=== PATIENT | male | born 1960 | race Caucasian/White ===

== ENCOUNTER 2020-05-24 05:18 | Outpatient (CLI) | payer OTHER ==
[2020-05-24 11:48] LABS: Anion Gap 16 mmol/L (10-20); BUN (Urea Nitrogen) 16 mg/dL (8.4-25.7); Calc. Creatinine Clearance 0 mL/min (70-130); Calcium 10.2 mg/dL (7.8-10.44); Carbon Dioxide 25 mmol/L (22-29); Chloride 107 mmol/L (98-107); Estimated GFR-MDRD 76; Glucose 100 mg/dL (70-105); Potassium 5.6 mmol/L (3.5-5.1); Sodium 142 mmol/L (136-145)
[2020-05-24 12:12] LABS: Hemoglobin 15.3 g/dL (14.0-18.0); Mean Corpuscular HGB CONC 33.3 g/dL (32.0-36.0); Mean Corpuscular Hemoglobin 30.1 pg (27.0-31.0); Mean Corpuscular Volume 90.3 fL (78.0-98.0); Mean Platelet Volume 9.4 fL (7.4-10.4); Platelet Count 271 thou/uL (130-400); RBC Distribution Width 13.3 % (11.5-14.5); Red Blood Cell (RBC) Count 5.09 mill/uL (4.70-6.10); White Blood Cell (WBC) Count 8.2 thou/uL (4.8-10.8)
[2020-05-24 17:19] LABS: SARS-CoV-2 MS2 Positive; SARS-CoV-2 N Gene Negative; SARS-CoV-2 S Gene Negative; SARS-CoV-2 by NAA Not Detected (NotDetected); SARS-CoV-2 orf1ab Negative
== END 2020-05-24 05:19 | disposition home or self-care (01) ==
LOC: LABBT 05:18
PROVIDERS: ATTEND Neurological Surgery
DX: Z01.812 Encounter for preprocedural laboratory examination (principal); Z11.59 Encounter for screening for other viral diseases; M54.16 Radiculopathy, lumbar region
CPT/HCPCS: 80048; 85027; 87635; U0003

== ENCOUNTER 2020-05-29 06:03 | Day surgery (SDC) | payer OTHER ==
[2020-05-22 15:24] VITALS: BMI 28.7
[2020-05-29] MEDS ORDERED: Famotidine/PF 20 mg/2ml Vial ONE (06:53)
[2020-05-29] MEDS ORDERED: Fentanyl 250 MCG/5 ML VIAL ONE (07:07)
[2020-05-29 07:08] LABS: Potassium 3.5 mmol/L (3.5-5.1)
--- NOTE | 2020-05-29 08:01 | PRG ---
DATE OF SERVICE: 05/29/2020 preoperatively. We again discussed the plan L5-S1 diskectomy and fusion. He is very concerned about the L4-L5 disk and after reinspection of his MRI scan, I do agree this is potentially contributing to some degree of symptoms. He is keen on exploring this disk if it visually appears to be necessary. I told him we would take this into account during the procedure. Job ID: [id number]
[2020-05-29] MEDS ORDERED: SUGAMMADEX SODIUM 200 MG/2 ML VIAL ONE (08:33)
[2020-05-29] MEDS ORDERED: Meperidine HCl/PF 25 MG/ML VIAL ONE (09:12)
[2020-05-29] MEDS ORDERED: Fentanyl 100 MCG/2 ML VIAL ONE ×3 (09:12→10:06)
[2020-05-29] MEDS ORDERED: Tamsulosin HCl 0.4 MG CAP ONE (09:50)
--- NOTE | 2020-05-29 10:29 | OP ---
DATE OF PROCEDURE: 05/29/2020 NAMED ACCOUNT EXECUTIVE: Rajiv. PROCEDURES PERFORMED: Left L5-S1 and L4-L5 laminectomy, facetectomy, foraminotomy, and diskectomy; interbody arthrodesis, L4-L5 and L5-S1; intervertebral biomechanical device, L4-L5; demineralized bone matrix; local morselized autograft; and pedicle screw instrumentation L4-L5 and L5-S1. DESCRIPTION OF PROCEDURE: The patient was brought to the operating room and intubated. He was rolled in a prone position on gel-filled chest rolls. We exposed L5 and S1 and included the L4-L5 inferior facet. Exploring the L4-L5 facet, we found a surprising amount of ligamentous laxity and bilateral exterior synovial cyst protrusion suggesting significant facet pathology. Based on the patient's preoperatively expressed wishes, we elected to include L4-L5 in the procedure. We next performed left L4-L5 laminectomy, facetectomy, foraminotomy and similarly at L5-S1. At the L5-S1 level, we found the disk space to be entirely collapsed. This was removed and the bony endplates decorticated for the purpose of arthrodesis, but I did not attempt to place an intervertebral device at L5-S1 given the small size of the disk space. At L4-L5, we did perform a complete diskectomy and after complete decompression had been secured, bony endplates were decorticated for the purpose of arthrodesis and appropriate-sized intervertebral biomechanical PEEK device were all in the field filled with demineralized bone matrix local morselized autograft, and tapped in place securely at L4-L5. Next, pedicle screws were placed at left L4, left L5, and left S1 using lateral fluoroscopic guidance. The rick was secured between the screws, connected by nuts, which were final tightened. The wound was then extensively irrigated and MAC hemostasis was secured. A combination of demineralized bone matrix local morselized autograft was laid over the lamina and posterolateral surface was used for the purpose of arthrodesis. Vancomycin powder was applied and the wound was then closed in anatomic layers. Job ID: [id number]
[2020-05-29] MEDS ORDERED: PROPOFOL 200 MG/20 ML VIAL ONE (10:33)
[2020-05-29] MEDS ORDERED: Metoclopramide HCl 10 MG/2 ML VIAL ONE (10:33)
[2020-05-29] MEDS ORDERED: Lidocaine 1% PF 5 ML VIAL ONE (10:33)
[2020-05-29] MEDS ORDERED: Rocuronium Bromide 10 MG/ML (10ML VIAL) ONE (10:33)
[2020-05-29] MEDS ORDERED: Ondansetron PF 4 MG/2 ML Vial ONE (10:33)
[2020-05-29] MEDS ORDERED: Dexamethasone 20 MG/5 ML VIAL ONE (10:33)
[2020-05-29] MEDS ORDERED: Albuterol Sulfate HFA (OR ONLY) ONE (10:33)
[2020-05-29] MEDS ORDERED: Acetaminophen/Codeine 30-300mg Tablet ONE (10:57)
--- NOTE | 2020-05-29 11:57 | EKG ---
Test Reason : PREOP REPEAT Blood Pressure : / mmHG Vent. Rate : 058 BPM Atrial Rate : 058 BPM P-R Int : 180 ms QRS Dur : 100 ms QT Int : 428 ms P-R-T Axes : 042 -03 038 degrees QTc Int : 420 ms Sinus bradycardia Non-specific intra-ventricular conduction delay Abnormal ECG Confirmed by RUBEN GARCIA ([id number]) on 05/29/2020 11:57:22 AM Referred By: KATHE Confirmed By:RUBEN GARCIA
== END 2020-05-29 11:40 | disposition home or self-care (01) ==
LOC: SDC 06:03
PROVIDERS: ATTEND Neurological Surgery
PROC: 0ST20ZZ Resection of Lumbar Vertebral Disc, Open Approach (ICD-10-PCS; principal; 2020-05-29)
PROC: 0SG00AJ Fusion of Lumbar Vertebral Joint with Interbody Fusion Device, Posterior Approach, Anterior Column, Open Approach (ICD-10-PCS; principal; 2020-05-29)
DX: M54.16 Radiculopathy, lumbar region (principal); M71.38 Other bursal cyst, other site; E78.5 Hyperlipidemia, unspecified; K21.9 Gastro-esophageal reflux disease without esophagitis; G47.31 Primary central sleep apnea; M19.90 Unspecified osteoarthritis, unspecified site; Z79.899 Other long term (current) drug therapy
CPT/HCPCS: 36415; 76000; 84132; 93005; 93010; C1713; C1768; J0690; J1100; J2175; J2405; J2704; J2765; J3010; J3370; J3490; S0028

== ENCOUNTER 2020-07-11 09:24 | Outpatient (CLI) | payer OTHER ==
--- NOTE | 2020-07-11 10:39 | CT ---
CT lumbar spine without contrast: HISTORY: Lumbar radiculopathy. Patient with history of back surgery and now having low back pain with pain ext ending into left leg. COMPARISON: No prior CT exams of the lumbar spine available FINDINGS: Vascular calcifications are seen in the abdominal aorta and iliac arteries. Remainder of the limited visualized retroperitoneal structures demonstrate a grossly normal nonenhanced CT appearance. No fracture or subluxation is seen involving the lumbar spine. Postoperative changes lower lumbar spi ne are noted with unilateral left-sided pedicular screws with interlocking rods transfixing the L4-5 and L5-S1 levels. Intradiscal prosthesis is seen at the L4-5 level. No hardware complication is seen. L1-2: No significant central canal or neural foraminal narrowing is seen. L2-3: Mild far lateral right disc bulge which encroaches on the inferior aspect of the right neural f oramen without significant neural foraminal narrowing. Central spinal canal and neural foramina are patent at this level. L3-4: Mild disc osteophyte complex and mild facet degenerative changes. No significant neural foramin al narrowing is seen. Central spinal canal is patent. L4-5: There is artifact at this level due to left-sided pedicular screws. A left laminotomy defect an d facetectomy is present at this level. There is soft tissue density along the left lateral aspect of the thecal sac which extends into the inferior aspect of the left neural foramen and results in mi [id number] left neural foraminal narrowing. This could potentially represent scar tissue, but residual disc material cannot be excluded. The right neural foramen is patent. There is mild central canal narrowing noted. L5-S1: Severe loss of intervertebral disc height with endplate degenerative changes and vacuum phenom enon in the intervertebral disc. There is a mild disc osteophyte complex present at this level. Moderate right neural foraminal narrowing is present primarily related to bony encroachment due to po sterior osteophyte formation eccentrically greater on the right. The left neural foramen and central canal are patent. IMPRESSION: 1. Postoperative changes L4-5 and L5-S1 levels related to unilateral left-sided posterior fusion at t hese levels. 2. Left laminotomy defect at the L4-5 level with soft tissue density extending along the laminotomy d efect and along the left lateral aspect of the thecal sac resulting in moderate narrowing of the left neural foramen. Findings may be related to scar tissue in this region, but residual disc materia l is also a possibility. 3. Degenerative changes lumbosacral junction with moderate right-sided neural foraminal narrowing ernestine lane related to bony encroachment.
== END 2020-07-11 09:25 | disposition home or self-care (01) ==
LOC: TBSIIMAG 09:24
PROVIDERS: ATTEND Neurological Surgery
DX: M47.26 Other spondylosis with radiculopathy, lumbar region (principal); M48.061 Spinal stenosis, lumbar region without neurogenic claudication; Z98.890 Other specified postprocedural states; Z98.1 Arthrodesis status
CPT/HCPCS: 72131

== ENCOUNTER 2020-07-25 12:29 | Outpatient (CLI) | payer OTHER ==
--- NOTE | 2020-07-25 16:43 | RAD ---
LUMBAR SPINE 2 VIEWS: HISTORY: Lumbar radiculopathy. COMPARISON: 06/18/2020. FINDINGS: Pedicle screws on the left are again noted at L4, L5, and S1 with interbody implant at L4-5. There i s loss of disk space at L5-S1. Vertebral body height and alignment is maintained and appears stable from the prior exam. Lateral bridging osteophyte on the right at L2-3 again noted. No interval peng ge from 06/18/2020. IMPRESSION: Stable lumbar spine findings. POS: CHRISTIAN
== END 2020-07-25 12:30 | disposition home or self-care (01) ==
LOC: TBSIIMAG 12:29
PROVIDERS: ATTEND Neurological Surgery
DX: M54.16 Radiculopathy, lumbar region (principal)
CPT/HCPCS: 72100

== ENCOUNTER 2020-08-15 11:30 | Outpatient (CLI) | payer OTHER ==
--- NOTE | 2020-08-15 12:27 | RAD ---
2 VIEWS LUMBAR SPINE: Date: 08/15/2020 COMPARISON: 07/25/2020. HISTORY: Status post fusion. Right leg issues. FINDINGS: Unilateral left-sided transpedicular screw at L4, L5, and S1. No perihardware lucency. Stable moderat e to severe loss of disc space height at L5-S1. Stable disc prosthesis at L4-L5. No change in alignme nt. Vertebral body heights are maintained. No fracture. IMPRESSION: Stable postsurgical change, compatible with left-sided fusion from L4 through S1. POS: AH
== END 2020-08-15 11:31 | disposition home or self-care (01) ==
LOC: TBSIIMAG 11:30
PROVIDERS: ATTEND Neurological Surgery
DX: M54.16 Radiculopathy, lumbar region (principal); Z98.890 Other specified postprocedural states
CPT/HCPCS: 72100

== ENCOUNTER 2020-09-17 14:31 | Outpatient (CLI) | payer OTHER ==
--- NOTE | 2020-09-17 15:23 | RAD ---
EXAM: XR Lumbar Spine 2 Or 3 View PROVIDED CLINICAL HISTORY: Spondylolisthesis COMPARISON: 08/15/2020 FINDINGS: 5 lumbar vertebral bodies are redemonstrated. Lumbar alignment is unchanged. Postoperative changes ap pear stable. Disc space heights appear preserved. Vertebral body heights appear preserved. Pedicles appear intact. IMPRESSION: Stable exam.
== END 2020-09-17 14:32 | disposition home or self-care (01) ==
LOC: TBSIIMAG 14:31
PROVIDERS: ATTEND Neurological Surgery
DX: M43.16 Spondylolisthesis, lumbar region (principal)
CPT/HCPCS: 72100

== ENCOUNTER 2020-10-09 11:15 | Outpatient (CLI) | payer OTHER ==
--- NOTE | 2020-10-09 12:49 | RAD ---
LUMBAR SPINE 4 VIEWS: HISTORY: Back pain. Spondylolisthesis. COMPARISON: 09/17/2020. FINDINGS: The pedicle screws and rods on the left transfixing L4, L5, and S1 again noted. An interbody implant at L4-5 is unchanged in position. There is now a fracture of the S1 pedicle screw when compared to the recent exam of 09/17/2020. The hardware is otherwise unchanged. No evidence of loosening. Loss of disk space at L5-S1 is stable. The spurring from the lumbar vertebrae is unchanged. Vertebr al body height and alignment is preserved and there is no evidence of significant listhesis with flex ion or extension. IMPRESSION: 1. Fracture of the S1 pedicle screw on the left when compared to recent exam of 09/17/2020. 2. Otherwise, the lumbar findings are stable. POS: CHRISTIAN
== END 2020-10-09 11:16 | disposition home or self-care (01) ==
LOC: TBSIIMAG 11:15
PROVIDERS: ATTEND Neurological Surgery
DX: M43.16 Spondylolisthesis, lumbar region (principal); T84.226A Displacement of internal fixation device of vertebrae, initial encounter
CPT/HCPCS: 72120

== ENCOUNTER 2020-10-16 07:14 | Outpatient (CLI) | payer OTHER ==
[2020-10-15 11:35] VITALS: BMI 28.7
[2020-10-16] MEDS ORDERED: Sodium Chloride 0.9% 10 ML ONE (07:58)
--- NOTE | 2020-10-16 09:07 | RAD ---
MYELOGRAM LUMBAR: DATE: 10/16/2020 HISTORY: 60-year-old male with low back pain and right lumbar radiculopathy. Spinal fusion failure T 84.9XXA, fracture of S1 screw T 84.498A TECHNIQUE: Signed informed consent obtained. Patient placed prone on fluoroscopy table. Skin of lower back prepa red and draped in usual sterile fashion. 25-gauge needle used to apply buffered lidocaine superficially and deeply. Level selected:L2-3. Approach:right paramedian interlaminar. 22-gauge spinal needle advanced into spinal canal under brief, intermittent fluoroscopy. Upon return of clear CSF, 10 mL Isovue [id number] media was injected into the intrathecal space. Spinal needle was removed. Patient tolerated procedure well. No complications. Total fluoroscopy time:0.7 minutes. Dose area product:53.7 uGy*m^2. FINDINGS: Unilateral left pedicle screws at L4, L5, and S1. Fracture of S1 screws are demonstrated on recent lumbar spine radiograph of 10/09/2020. Good contrast opacification of thecal sac. IMPRESSION: Successful lumbar myelogram. See separate report of subsequent CT lumbar myelogram.
[2020-10-16 09:17] VITALS: BP 125/80; TEMP 98.1
--- NOTE | 2020-10-16 10:12 | CT ---
CT lumbar spine with contrast: (CT lumbar myelogram) 10/16/2020 HISTORY: 60-year-old male with low back pain and right lumbar radiculopathy. Spinal fusion failure T 84.9XXA, fracture of S1 screw T 84.498A COMPARISON: Noncontrast CT of 07/11/2020 FINDINGS: 5 lumbar-type vertebrae. Vertebral body heights are maintained. Except for L5-S1, the rest of the disc spaces are maintained. No spondylolysis or spondylolisthesis. Conus medullaris terminates at lower L1 level. Cauda equina is arranged in a symmetrical, normal distribution throughout the thecal sac. T12-L1: Normal L1-2: Old, well-corticated, approximately 1.8 x 1.3 x 0.8 cm ossific fragment without significant dis placement pseudoarticulating with truncated left L2 superior articular facet. This causes mild left neural foraminal stenosis. There is no central spinal canal stenosis. No high-grade neural foraminal stenosis. No interval change. L2-3: No central spinal canal stenosis. Mild bilateral facet DJD, right greater than left. Left far l ateral and especially right far lateral eccentric disc bulges causing low-grade bilateral neural foraminal stenosis, right greater than left. L3-4: Mild bilateral facet DJD, left greater than right. Mild disc bulge and mild ligamentum flavum t hickening result in mild central spinal canal stenosis. Low-grade bilateral neural foraminal stenosis, right greater than left. L4-5: Mild disc bulge. Low-grade right neural foraminal stenosis. No significant left neural foramina l stenosis, although scar tissue partially effaces the neural foraminal fat. Unilateral left pedicle screws at L4 and L5 with no signs of hardware loosening. Screws are in appropriate positions. No central spinal canal stenosis. Metallic markers within the disc space again noted. No osseous bridges between the endplates. Left L4 inferior facetectomy defect again noted. L5-S1: Severe disc space narrowing. Vacuum disc phenomenon. Mild endplate sclerosis. Left S1 pedicle screw is within bone, and does not traverse spinal canal or neural foramen. No signs of hardware loosening. The fracture at the most posterior aspect of the threaded portion of the screw demonstrate d plain radiograph of 10/09/2020, is not appreciated on this CT, probably because the displacement is not greatly, and because of the high density of metal. No central spinal canal stenosis. Moderate right neural foraminal stenosis due to eccentrically larger right lateral and far lateral components of broad-based disc-osteophyte complex. No left neural foraminal stenosis. Wide laminectom y defect. No interval change overall throughout lumbar spine identified compared to 07/11/2020. IMPRESSION: 1.) No high-grade central spinal canal stenosis at any level. 2) status post laminectomy at L5-S1. 3) unilateral left pedicle screws at L4, L5, and S1, with no evidence of hardware loosening. 4) the hardware fracture of the S1 screw is definitively demonstrated on the plain radiograph, but ca nnot be appreciated on CT 5) status post interbody fusion procedure at L4-5, without ankylosis achieved. 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
== END 2020-10-16 09:50 | disposition home or self-care (01) ==
LOC: RAD 07:14
PROVIDERS: ATTEND Neurological Surgery
DX: T84.9XXA Unspecified complication of internal orthopedic prosthetic device, implant and graft, initial encounter (principal); T84.498A Other mechanical complication of other internal orthopedic devices, implants and grafts, initial encounter; Z98.1 Arthrodesis status; Z98.890 Other specified postprocedural states
CPT/HCPCS: 62304; 72132